=== PATIENT | female | born 1950 | race Caucasian/White ===

== ENCOUNTER 2018-11-11 08:20 | Day surgery (SDC) | payer MEDICARE, BC ==
[2018-11-11] MEDS ORDERED: DIPHENHYDRAMINE HCL 50 MG/ML VIAL ONE (08:55)
[2018-11-11] MEDS ORDERED: ONDANSETRON HCL INJ/PF 4 MG/2 ML SDV ONE (08:55)
[2018-11-11] MEDS ORDERED: GLUCAGON,HUMAN RECOMB 1 MG INJ ONE (08:56)
[2018-11-11] MEDS ORDERED: EPINEPHRINE INJ 1 MG/10 ML DISP.SYRIN ONE (08:56)
[2018-11-11] MEDS ORDERED: NALOXONE HCL INJ/PF 0.4 MG/1 ML SDV ONE (08:56)
[2018-11-11] MEDS ORDERED: FLUMAZENIL INJ 0.5 MG/5 ML VIAL ONE (08:56)
[2018-11-11] MEDS: MIDAZOLAM 2 MG/2 ML INJ ONE ×3 (09:20→09:51)
[2018-11-11] MEDS: FENTANYL CITRATE INJ/PF 100 MCG/2 ML AMPUL ONE ×3 (09:23→09:35)
--- NOTE | 2018-11-11 10:31 | Operative Report ---
Nonrecallable Operative Report DATE OF SURGERY: 11/11/18 PREOPERATIVE DIAGNOSIS: colonic polyps POSTOPERATIVE DIAGNOSIS: colonic polyps OPERATION: colonoscopy SURGEON: SURESH VIVEROS 1ST C[employer]ER SUPPORT TECHNICIAN: MILTON CAICEDO ANESTHESIA: Moderate Sedation TISSUE REMOVED OR ALTERED: polyp 40cm COMPLICATIONS: none ESTIMATED BLOOD LOSS: none INTRAOPERATIVE FINDINGS: Procedure - colonoscopy with colonic polyp biopsy. Surgeon Josh nutrition assistant Milton Caicedo. She was brought to the endoscopy suite awake and alert in a left lateral decubitus position. After appropriate timeout site verification a digital rectal exam was performed. These were normal. This colonoscope was then passed easily into the rectum and manipulated past the sigmoid colon up the descending colon transverse colon descending colon down to the cecum. The appendiceal orifice was identified and noted to be normal. Scope withdrawal time was 5 minutes. Smooth sessile polyp was identified at 40 cm. Was biopsied. Multiple large diverticula were noted in the sigmoid colon and descending colon. After withdrawal of the scope the patient was taken back to recovery in stable condition no complications
[2018-11-11 11:59] VITALS: BP 107/57
== END 2018-11-11 11:10 | disposition home or self-care (01) ==
LOC: END 08:20
PROVIDERS: ATTEND Surgery
DX: Z12.11 Encounter for screening for malignant neoplasm of colon (principal); K57.30 Diverticulosis of large intestine without perforation or abscess without bleeding; Z86.010 Personal history of colon polyps; E03.9 Hypothyroidism, unspecified; Z87.891 Personal history of nicotine dependence; Z79.899 Other long term (current) drug therapy
CPT/HCPCS: 45380; 88305 ×2; J2250; J3010; J2405; J0171; J1200; J1610; J2310; J3490